=== PATIENT | female | born 1955 | race Native Hawaiian/Other Pacific Islander ===

== ENCOUNTER 2019-03-12 20:20 | Outpatient (CLI) | payer BC | END 2019-03-12 20:24 | disposition short-term general hospital (02) | LOC: AMB 20:20 | DX: R41.82 Altered mental status, unspecified (principal); I46.9 Cardiac arrest, cause unspecified | CPT/HCPCS: A0425; A0433 ==

== ENCOUNTER 2019-03-12 20:25 | Emergency (ER) | payer BC ==
[~2019-03-12] VITALS: Ht 157.5 cm; Wt 113.4 kg
[2019-03-12 20:59] LABS: PLATELET COUNT 282 K/uL (152-353)
[2019-03-12 21:22] LABS: POTASSIUM 7.5 mmol/L (3.6-5.2)
== END 2019-03-12 20:53 | disposition expired ==
LOC: EDBD 20:29 → ED 20:29
PROVIDERS: Emergency Medicine
DX: I46.9 Cardiac arrest, cause unspecified (principal)
CPT/HCPCS: 80053; 82550; 82553; 84484; 85027; 92950; 96360; 96374; 96375; 96376; 99291; J0171; J0461